=== PATIENT | female | born 1980 | race Caucasian/White ===

== ENCOUNTER 2018-03-13 04:49 | Emergency (ER) | payer MEDICAID, OTHER ==
[2018-03-13 04:49] VITALS: BMI 36.0
[2018-03-13 05:15] VITALS: PULSE 77; TEMP 98
--- NOTE | 2018-03-13 05:23 | C.PDOC ---
History Of Present Illness 37 year old female presents to the emergency department with complaints of cramping abdominal pain associated with vomiting and diarrhea. Patient states she "ate some barbecue chicken two days ago" after which the symptoms started. Patient denies fever, or dysuria. Patient reports that her PO intake has decreased and qualifies her diarrhea as loose and watery. Time Seen by Provider: 03/13/18 05:22 Chief Complaint (Nursing): Abdominal Pain History Per: Patient History/Exam Limitations: no limitations Onset/Duration Of Symptoms: Days (2) Current Symptoms Are (Timing): Still Present Context: Food Severity: Moderate Pain Scale Rating Of: 4 Location Of Pain/Discomfort: Other Radiation Of Pain To:: None Quality Of Discomfort: Cramping, "Pain" Associated Symptoms: Vomiting, Diarrhea. denies: Fever, Urinary Symptoms Past Medical History Reviewed: Historical Data, Nursing Documentation, Vital Signs Vital Signs: Last Vital Signs Temp 98 F 03/13/18 05:07 Pulse 77 03/13/18 05:07 Resp 20 03/13/18 05:07 BP 113/71 03/13/18 05:07 Pulse Ox 96 03/13/18 05:35 - Medical History PMH: Anxiety, Asthma, Depression, Gastrointestinal Ulcer Denies: Diabetes, Hepatitis, HIV, HTN, Kidney Stones, Chronic Kidney Disease , Seizures, Sexually Transmitted Disease Surgical History: No Surg Hx - [facility] Procedures IMMOBILIZ/WOUND ATTN NEC (11/08/14) Family History: States: No Known Family Hx - Social History Hx Tobacco Use: No Hx Alcohol Use: No Hx Substance Use: No - Immunization History Hx Tetanus Toxoid Vaccination: Yes Hx Influenza Vaccination: No Hx Pneumococcal Vaccination: No Review Of Systems Constitutional: Negative for: Fever Gastrointestinal: Positive for: Vomiting, Diarrhea Genitourinary: Negative for: Dysuria Physical Exam - Physical Exam Appears: Non-toxic, No Acute Distress Skin: Warm, Dry Head: Atraumatic Eye(s): bilateral: Normal Inspection Oral Mucosa: Moist Neck: Trachea Midline, Supple Chest: Symmetrical Cardiovascular: Rhythm Regular Respiratory: No Rales, No Rhonchi, No Wheezing Gastrointestinal/Abdominal: Soft, Tenderness (mid-epigastric tenderness), No Guarding, No Rebound, Other (morbidly obese) Back: Normal Inspection Extremity: Normal ROM Extremity: Bilateral: Atraumatic Pulses: Left Dorsalis Pedis: Normal, Right Dorsalis Pedis: Normal Neurological/Psych: Oriented x3 Gait: Steady ED Course And Treatment - Laboratory Results Result Diagrams: 03/13/18 05:36 03/13/18 05:36 O2 Sat by Pulse Oximetry: 96 (RA) Pulse Ox Interpretation: Normal Progress Note: Plan: CMP. Lipase. CBC. Pepcid 20mg PO. NaCl IV Fluids. Zofran 4mg IVP. HCG. Urinalysis Disposition Counseled Patient/Family Regarding: Studies Performed, Diagnosis - Disposition Disposition Time: : Condition: FAIR Forms: [employer] (Portuguese) - Clinical Impression Clinical Impression: Abdominal pain, Pancreatitis - Scribe Statement The provider has reviewed the documentation as recorded by the Scribe (Samuel Oneill) Provider Attestation: All medical record entries made by the Scribe were at my direction and personally dictated by me. I have reviewed the chart and agree that the record accurately reflects my personal performance of the history, physical exam, medical decision making, and the department course for this patient. I have also personally directed, reviewed, and agree with the discharge instructions and disposition. Physician Patient Turnover Patient Signed Over To: Domenica Jha Handoff Comments: pending ct , re-eval and dispo
[2018-03-13] MEDS ORDERED: Sodium Chloride 0.9% 1,000 ML IV ONE ×2 (05:24→06:25)
[2018-03-13] MEDS ORDERED: Sodium Chloride 0.9% 1,000 ML ONE (05:40)
[2018-03-13 05:45] LABS: BASO # 0.1 K/uL (0.0-0.2); BASO % 0.8 % (0.0-2.0); EOS # 0.1 K/uL (0.0-0.7); EOS % 0.9 % (0.0-4.0); HEMOGLOBIN 12.8 g/dL (11.0-16.0); LYMPH # 1.9 K/uL (1.0-4.3); LYMPH % 28.8 % (20.0-40.0); MEAN CELL VOLUME 87.9 fL (81.0-99.0); MEAN CORPUSCULAR HEMOGLOBIN 29.8 pg (27.0-31.0); MEAN CORPUSCULAR HGB CONC 33.9 g/dL (33.0-37.0); MEAN PLATELET VOLUME 10.6 fL (7.2-11.7); MONO # 0.4 K/uL (0.0-0.8); MONO % 6.2 % (0.0-10.0); NEUT # 4.2 K/uL (1.8-7.0); NEUT % 63.3 % (50.0-75.0); RBC 4.31 Mil/uL (3.80-5.20); RED CELL DISTRIBUTION WIDTH 13.6 % (11.5-14.5); WHITE BLOOD COUNT 6.6 K/uL (4.8-10.8)
[2018-03-13 05:52] LABS: ALB/GLOB RATIO 1.1 (1.0-2.1); ALBUMIN 3.9 g/dL (3.5-5.0); ALT/SGPT 38 U/L (9-52); AST/SGOT 35 U/L (14-36); BLOOD UREA NITROGEN 13 mg/dL (7-17); CALCIUM 8.3 mg/dl (8.6-10.4); GFR AFRICAN-AMERICAN > 60; GFR NON-AFRICAN AMERICAN > 60; LIPASE 862 U/L (23-300)
[2018-03-13] MEDS ORDERED: Iohexol 350mg/ml 100 ML ONE (06:30)
[2018-03-13 06:43] LABS: HCG,QUALITATIVE URINE NEGATIVE (NEGATIVE)
[2018-03-13 06:46] LABS: SQUAMOUS EPITHIAL 4 /hpf (0-5); URINE BACTERIA RARE (<OCC); URINE BILIRUBIN NEGATIVE (NEGATIVE); URINE BLOOD NEGATIVE (NEGATIVE); URINE CLARITY Clear (Clear); URINE COLOR Yellow (YELLOW); URINE GLUCOSE (UA) NORMAL (Normal); URINE LEUKOCYTE ESTERASE NEG Leu/uL (Negative); URINE PROTEIN NEGATIVE (NEGATIVE); URINE UROBILINOGEN NORMAL mg/dL (0.2-1.0)
[2018-03-13 07:34] VITALS: BP 103/67; RESP 18; O2SAT 97
--- NOTE | 2018-03-13 08:03 | CT ---
EXAM: CT Abdomen and Pelvis With Intravenous Contrast CLINICAL HISTORY: 37 years old, female; Pain; Abdominal pain; Generalized; Patient HX: Elevated lipase; Additional info: Abd pain, elevated lipase TECHNIQUE: Axial computed tomography images of the abdomen and pelvis with intravenous contrast. All CT scans at this facility use one or more dose reduction techniques, viz.: automated exposure control; ma/kV adjustment per patient size (including targeted exams where dose is matched to indication; i.e. head); or iterative reconstruction technique. Coronal and sagittal reformatted images were created and reviewed. CONTRAST: 100 mL of OMNIPAQUE 350 administered intravenously. COMPARISON: CT - ABD PELVIS W/O PO OR IV CONT 2013-09-12 14:19 FINDINGS: Lung bases: Unremarkable. No mass. No consolidation. ABDOMEN: Liver: There is a diffuse decrease in hepatic parenchymal density, consistent with fatty infiltration. There is diffuse mild enlargement of the liver measuring 20 cm. No mass. Gallbladder and bile ducts: Unremarkable. No calcified stones. No ductal dilation. Pancreas: Unremarkable. No mass. No ductal dilation. Spleen: The spleen is mildly enlarged measuring 13 cm. Adrenals: Unremarkable. No mass. Kidneys and ureters: Unremarkable. No solid mass. No hydronephrosis. Stomach and bowel: There is no wall thickening or pericolonic stranding to suggest colitis. No obstruction. PELVIS: Appendix: A normal appendix is identified. Bladder: Unremarkable. No mass. Reproductive: Unremarkable as visualized. ABDOMEN and PELVIS: Intraperitoneal space: Unremarkable. No free air. No significant fluid collection. Bones/joints: No acute fracture. No dislocation. Soft tissues: Unremarkable. Vasculature: There are numerous benign phleboliths in the pelvis. No abdominal aortic aneurysm. Lymph nodes: Unremarkable. No enlarged lymph nodes. IMPRESSION: No acute intra-abdominal or pelvic abnormality. Mild nonspecific hepatosplenomegaly, unchanged. Fatty liver, unchanged.
== END 2018-03-13 08:22 | disposition home or self-care (01) ==
LOC: C.ER 04:49
DX: K85.90 Acute pancreatitis without necrosis or infection, unspecified (principal); R10.9 Unspecified abdominal pain
CPT/HCPCS: 74177; 80053; 81001; 83690; 84703; 85025; 96361; 96374; 99285; J2405; J7030; Q9967